=== PATIENT | male | born 1985 | race Caucasian/White ===

== ENCOUNTER 2017-10-04 09:49 | Emergency (ER) | payer OTHER ==
[2017-10-04] MEDS ORDERED: HYDROCODONE/APAP 7.5/325 MG TAB ONE (10:11)
[2017-10-04] MEDS ORDERED: KETOROLAC 30 MG/ML INJ ONE (10:11)
[2017-10-04] MEDS ORDERED: DIAZEPAM 5 MG TABLET ONE ×2 (10:12→11:04)
--- NOTE | 2017-10-04 11:40 | ER ---
Nurse's Notes [facility] Name: Jamie Zuniga Age: 32 yrs Sex: Male : 1985 Arrival Date: 10/04/2017 Time: 09:52 Bed 16 Private MD: Devang Kwok Diagnosis: Low back pain;Fall on same level, unspecified Presentation: 10/04 10:00 Presenting complaint: Patient states: chronic low back pain since 2012, history of ss bulging disc. Pt [place] the [place] his dog pulled the leash, causing patient to fall over onto his back. Pt c/o increased R low back pain since incident occurred. Transition of care: patient was not received from another setting of care. Onset of symptoms was October 03, 2012. Risk Assessment: Do you want to hurt yourself or someone else? Patient reports no desire to harm self or others. Initial Sepsis Screen: Does the patient meet any 2 criteria? No. Patient's initial sepsis screen is negative. Does the patient have a suspected source of infection? No. Patient's initial sepsis screen is negative. Care prior to arrival: None. 10:00 Method Of Arrival: Ambulatory ss 10:00 Acuity: GAETANO 4 ss Historical: - Allergies: 10:01 No Known Allergies; ss - Home Meds: 10:01 None [Active]; ss - PMHx: 10:01 chronic back pain; sciatica; ss - PSHx: 10:01 None; ss - Immunization history:: Adult Immunizations up to date. - Social history:: Smoking status: Patient/guardian denies using tobacco. - Ebola Screening: : Patient denies exposure to infectious person Patient denies travel to an Ebola-affected area in the 21 days before illness onset. Screenin:56 Abuse screen: Denies threats or abuse. Nutritional screening: No deficits noted. rb1 Tuberculosis screening: No symptoms or risk factors identified. Fall Risk None identified. Assessment: 09:56 General: Appears uncomfortable, Behavior is calm, cooperative. Pain: Complains of pain rb1 in left low back and right low back Pain currently is 10 out of 10 on a pain scale. Pain began 1 day ago. Neuro: Level of Consciousness is awake, alert, obeys commands, Oriented to person, place, time, situation. Cardiovascular: Capillary refill < 3 seconds is brisk in bilateral fingers. Respiratory: Airway is patent Respiratory effort is even, unlabored, Respiratory pattern is regular, symmetrical. GI: No signs and/or symptoms were reported involving the gastrointestinal system. : No signs and/or symptoms were reported regarding the genitourinary system. Derm: Skin is pink, warm \T\ dry. Musculoskeletal: Range of motion: intact in all extremities. 10:30 Reassessment: Pt. went to X-ray. rb1 11:00 Reassessment: Patient appears in no apparent distress at this time. Patient and/or rb1 family updated on plan of care and expected duration. Pain level reassessed. Patient is alert, oriented x 3, equal unlabored respirations, skin warm/dry/pink. 11:49 Reassessment: Discharge pending due to the pt. being pale and feeling nauseous from the rb1 pain medication. Provider ordered Zofran 4 mg PO once. 12:22 Reassessment: Patient appears in no apparent distress at this time. Patient and/or rb1 family updated on plan of care and expected duration. Pain level reassessed. Patient is alert, oriented x 3, equal unlabored respirations, skin warm/dry/pink. Patient states feeling better. Patient states symptoms have improved. Vital Signs: 10:01 BP 132 / 83; Pulse 103; Resp 16; Temp 98.0(O); Pulse Ox 96% on R/A; Weight 122.47 kg; ss Height 6 ft. 4 in. (193.04 cm); Pain 10/10; 11:00 BP 117 / 81; Pulse 80; Resp 18; Pulse Ox 96% on R/A; Pain 7/10; rb1 11:51 BP 107 / 65; Pulse 78; Resp 18; Pulse Ox 96% on R/A; rb1 10:01 Body Mass Index 32.87 (122.47 kg, 193.04 cm) ED Course: 09:52 Patient arrived in ED. sb2 09:53 Devang Kwok MD is Private Physician. sb2 09:56 Patient has correct armband on for positive identification. Bed in low position. Call rb1 light in reach. Side rails up X 1. Pulse ox on. NIBP on. 09:57 Ann-Marie Enamorado FNP-C is [facility]. snw 09:57 Kevin Guzman MD is Attending Physician. snw 10:01 Triage completed. ss 10:01 Arm band placed on right wrist. ss 10:07 Tahira Flor, RN is Primary Nurse. rb1 10:47 X-ray completed. Patient tolerated procedure well. kc2 10:49 Lumbar Spine (3 Views) XRAY In Process Unspecified. EDMS 11:39 Devang Kwok MD is Referral Physician. snw 12:22 No provider procedures requiring assistance completed. Patient did not have IV access rb1 during this emergency room visit. Administered Medications: 10:16 Drug: TORadol 60 mg Route: IM; Site: right gluteus; rb1 11:00 Follow up: Response: No adverse reaction; Pain is decreased rb1 10:16 Drug: [place] (7.5 mg-325 mg) 1 tabs Route: PO; rb1 11:00 Follow up: Response: No adverse reaction; Pain is decreased rb1 11:04 Drug: Valium 5 mg {Note: pt. didn't want to take the medication with the [place] earlier. rb1 Provider was notified at that time..} Route: PO; 11:30 Follow up: Response: No adverse reaction rb1 11:50 Drug: Zofran 4 mg Route: PO; rb1 12:22 Follow up: Response: No adverse reaction; Nausea is decreased rb1 Outcome: 11:40 Discharge ordered by MD. snw 12:22 Discharged to home ambulatory. rb1 12:22 Condition: stable 12:22 Discharge instructions given to patient, Instructed on discharge instructions, follow up and referral plans. medication usage, Demonstrated understanding of instructions, follow-up care, medications, Prescriptions given X 2. 12:23 Patient left the ED. rb1 Signatures: Dispatcher [employer] EDGA Ann-Marie Enamorado, HIGH RISK OB-C HIGH RISK OB-Csnw Gela Aldridge RN RN Tahira Flor, RN RN rb1 Flower Jackson kc2 Keya Robledo sb2
--- NOTE | 2017-10-04 11:40 | EDPHYS ---
Physician Documentation [facility] Name: Jamie Zuniga Age: 32 yrs Sex: Male : 1985 Arrival Date: 10/04/2017 Time: 09:52 Bed 16 Private MD: Devang Kwok ED Physician Kevin Guzman HPI: 10/04 12:22 This 32 yrs old Male presents to ER via Ambulatory with complaints of Back snw Pain. 12:22 The patient presents with pain that is acute, and an injury. The symptoms are located snw in the low back. Onset: The symptoms/episode began/occurred gradually, 2 month(s) ago, and became worse yesterday, post dog pulling pt off his feet onto his back by the leash. The pain does not radiate. Associated signs and symptoms: Pertinent positives: none. The problem was sustained during a fall, running his dog at the beach and fell. Modifying factors: The patient symptoms are alleviated by nothing, the patient symptoms are aggravated by movement. It is unknown whether or not the patient has had similar symptoms in the past. The patient has not recently seen a physician, the patient's primary care provider is Dr. Dr. Kwok. Historical: - Allergies: 10:01 No Known Allergies; ss - Home Meds: 10: None [Active]; ss - PMHx: 10:01 chronic back pain; sciatica; ss - PSHx: 10:01 None; ss - Immunization history:: Adult Immunizations up to date. - Social history:: Smoking status: Patient/guardian denies using tobacco. - Ebola Screening: : Patient denies exposure to infectious person Patient denies travel to an Ebola-affected area in the 21 days before illness onset. ROS: 12:21 Constitutional: Negative for fever, chills, and weight loss, Eyes: Negative for injury, snw pain, redness, and discharge, ENT: Negative for injury, pain, and discharge, Neck: Negative for injury, pain, and swelling, Cardiovascular: Negative for chest pain, palpitations, and edema, Respiratory: Negative for shortness of breath, cough, wheezing, and pleuritic chest pain, Abdomen/GI: Negative for abdominal pain, nausea, vomiting, diarrhea, and constipation, : Negative for injury, bleeding, discharge, and swelling, MS/Extremity: Negative for injury and deformity, Skin: Negative for injury, rash, and discoloration, Neuro: Negative for headache, weakness, numbness, tingling, and seizure. 12:21 Back: Positive for injury or acute deformity, decreased range of motion, pain at rest, pain with movement. Exam: 12:20 Constitutional: This is a well developed, well nourished patient who is awake, alert, snw and in no acute distress. Head/Face: Normocephalic, atraumatic. Eyes: Pupils equal round and reactive to light, extra-ocular motions intact. Lids and lashes normal. Conjunctiva and sclera are non-icteric and not injected. Cornea within normal limits. Periorbital areas with no swelling, redness, or edema. ENT: Nares patent. No nasal discharge, no septal abnormalities noted. Tympanic membranes are normal and external auditory canals are clear. Oropharynx with no redness, swelling, or masses, exudates, or evidence of obstruction, uvula midline. Mucous membranes moist. Neck: Trachea midline, no thyromegaly or masses palpated, and no cervical lymphadenopathy. Supple, full range of motion without nuchal rigidity, or vertebral point tenderness. No Meningismus. Chest/axilla: Normal chest wall appearance and motion. Nontender with no deformity. No lesions are appreciated. Cardiovascular: Regular rate and rhythm with a normal S1 and S2. No gallops, murmurs, or rubs. Normal PMI, no JVD. No pulse deficits. Respiratory: Lungs have equal breath sounds bilaterally, clear to auscultation and percussion. No rales, rhonchi or wheezes noted. No increased work of breathing, no retractions or nasal flaring. Abdomen/GI: Soft, non-tender, with normal bowel sounds. No distension or tympany. No guarding or rebound. No evidence of tenderness throughout. Skin: Warm, dry with normal turgor. Normal color with no rashes, no lesions, and no evidence of cellulitis. MS/ Extremity: Pulses equal, no cyanosis. Neurovascular intact. Full, normal range of motion. Neuro: Awake and alert, GCS 15, oriented to person, place, time, and situation. Cranial nerves II-XII grossly intact. Motor strength 5/5 in all extremities. Sensory grossly intact. Cerebellar exam normal. Normal gait. 12:20 Back: pain, that is moderate, ROM is painful, decreased, muscle spasm, is appreciated in the low back area. Vital Signs: 10:01 BP 132 / 83; Pulse 103; Resp 16; Temp 98.0(O); Pulse Ox 96% on R/A; Weight 122.47 kg; ss Height 6 ft. 4 in. (193.04 cm); Pain 10/10; 11:00 BP 117 / 81; Pulse 80; Resp 18; Pulse Ox 96% on R/A; Pain 7/10; rb1 11:51 BP 107 / 65; Pulse 78; Resp 18; Pulse Ox 96% on R/A; rb1 10:01 Body Mass Index 32.87 (122.47 kg, 193.04 cm) ss MDM: 10:07 Patient medically screened. snw 12:21 Data reviewed: vital signs, nurses notes. Data interpreted: Pulse oximetry: on room air snw is 96 %. Interpretation: normal. Counseling: I had a detailed discussion with the patient and/or guardian regarding: the historical points, exam findings, and any diagnostic results supporting the discharge/admit diagnosis, radiology results, the need for outpatient follow up, to return to the emergency department if symptoms worsen or persist or if there are any questions or concerns that arise at home. Special discussion: Based on the history and exam findings, there is no indication for further emergent testing or inpatient evaluation. I discussed with the patient/guardian the need to see the back specialist for further evaluation of the symptoms. I discussed with the patient/guardian the need to see the primary care provider for further evaluation of the symptoms. 10/04 10:07 Order name: Lumbar Spine (3 Views) XRAY snw Administered Medications: 10:16 Drug: TORadol 60 mg Route: IM; Site: right gluteus; rb1 11:00 Follow up: Response: No adverse reaction; Pain is decreased rb1 10:16 Drug: [place] (7.5 mg-325 mg) 1 tabs Route: PO; rb1 11:00 Follow up: Response: No adverse reaction; Pain is decreased rb1 11:04 Drug: Valium 5 mg {Note: pt. didn't want to take the medication with the [place] earlier. rb1 Provider was notified at that time..} Route: PO; 11:30 Follow up: Response: No adverse reaction rb1 11:50 Drug: Zofran 4 mg Route: PO; rb1 12:22 Follow up: Response: No adverse reaction; Nausea is decreased rb1 Disposition: 10/05 07:17 Co-signature as Attending Physician, Kevin Guzman MD. Disposition: 10/04/17 11:40 Discharged to Home. Impression: Low back pain, Fall on same level, unspecified. - Condition is Stable. - Discharge Instructions: Back Pain, Adult, Hypertension, Musculoskeletal Pain, Back Injury Prevention, [id number], Cryotherapy, Heat Therapy. - Prescriptions for Diclofenac Sodium 75 mg Oral Tablet Sustained Release - take 1 tablet by ORAL route 2 times per day; 30 tablet. orphenadrine citrate 100 mg Oral Tablet Sustained Release - take 1 tablet by ORAL route 2 times per day As needed; 20 tablet. - Work release form, Medication Reconciliation Form, Thank You Letter, Antibiotic Education, Prescription Opioid Use form. - Follow up: Devang Kwok MD; When: 2 - 3 days; Reason: Recheck today's complaints, Continuance of care, Re-evaluation by your physician. Follow up: Emergency Department; When: As needed; Reason: Worsening of condition. Signatures: Dispatcher [employer] EDMS Ann-Marie Enamorado, MISSILE PAD MECHANIC-C MISSILE PAD MECHANIC-Csnw Gela Aldridge RN RN Tahira Flor RN RN rb1 Kevin Guzman MD MD Corrections: (The following items were deleted from the chart) 10/04 12:23 11:40 10/04/2017 11:40 Discharged to Home. Impression: Low back pain; Fall on same rb1 level, unspecified. Condition is Stable. Forms are Medication Reconciliation Form, Thank You Letter, Antibiotic Education, Prescription Opioid Use. Follow up: Devang Kwok; When: 2 - 3 days; Reason: Recheck today's complaints, Continuance of care, Re-evaluation by your physician. Follow up: Emergency Department; When: As needed; Reason: Worsening of condition. snw
[2017-10-04] MEDS ORDERED: ONDANSETRON 4 MG (ODT) TAB ONE (11:50)
--- NOTE | 2017-10-04 12:41 | RAD REPORT ---
EXAM DESCRIPTION: RAD - Lumbar Spine 3 Views - 10/04/2017 10:49 am CLINICAL HISTORY: Back pain, radiculopathy COMPARISON: None. FINDINGS: A three-view lumbar spine examination was performed. Lumbar bodies are normal in height an d normal in AP alignment. Minimal left convex curvature is seen. No fracture or acute bony process se en. L3-4 and L4-5 disc space narrowing seen with L4-5 endplate spurring. Facet degenerative change pr esent at L4-5. L5 body is partially sacralized. No pars defects identified. IMPRESSION: No fracture or acute lumbar finding. Significant for age at L3-4 and L4-5 degenerative disc disease with L4-5 facet degenerative change.
== END 2017-10-04 12:23 | disposition home or self-care (01) ==
LOC: ER 09:49
DX: M54.5 Low back pain (principal); G89.29 Other chronic pain; F45.42 Pain disorder with related psychological factors
CPT/HCPCS: 72100; 96372; 99284

== ENCOUNTER 2022-05-15 20:22 | Emergency (ER) | payer OTHER ==
--- OUTSIDE RECORDS SUMMARY | 2022-05-15 20:25 | XMS REPORT | Continuity of Care Document ---
:1985 Author Organization [facility] t Address [address] [place] [address] Care Team Providers Name Role Phone MARY KUHN Attending Clinician Unavailable Dante Carlos Attending Clinician Payers Payer Name Policy Type Policy Number Effective Date Expiration Date Jessenia AHUJANA CHOICE POS [id number] 2015 00:00:00 II Problems Condition Condition Condition Status Onset Resolution Last Treating Co mments Source Name Details Category Date Date Treatment Clinician Date Lumbar Lumbar Problem Active 2018-08-30 Nico jarocho radiculopa radiculopa 11:17:46 l thy thy [place] (disorder) (disorder) Active Problem 08/30/2018 [facility] Morbid Morbid Problem Active 2018-08-30 Nico jarocho obesity obesity 11:17:46 l (disorder) (disorder) He rmann Active Problem 08/30/2018 [facility] Allergies, Adverse Reactions, Alerts This patient has no known allergies or adverse reactions. Social History Social Habit Start Date Stop Date Quantity Comments Source Exposure to Not sure [facility] SARS-CoV-2 (event) Tobacco use and 2020-11-21 2020-11-21 Never used [facility] exposure 00:00:00 00:00:00 Alcohol intake 2020-11-21 2020-11-21 [facility] 00:[facility] 00:00:00 of alcohol (finding) Social History 2017-11-19 2017-11-19 [facility] tommy 15:17:09 15:17:09 Sex Assigned At [birth year] [facility] 00:00:00 00:00:00 Smoking Status Start Date Stop Date Source Never smoker [facility] Medications Ordered Filled Start Stop Current Ordering Indication Dosage Frequency Signature Comments Components Source Medication Medication Date Date Medication? Clinician (SIG) Name Name No known No [facility] No known No [facility] Vital Signs Vital Name Observation Time Observation Value Comments Source Body height 2020-11-21 19:06:00 190.5 cm [facility] Body weight 2020-11-21 19:06:00 127.007 [facility] BMI 2020-11-21 19:06:00 35.00 kg/m2 [facility] Procedures This patient has no known procedures. Encounters Start End Encounter Admission Attending Care Care Encounter Source Date/Time Date/Time Type Type Clinicians Facility Department ID 2020-11-21 Outpatient MARY KUHN [facility] [id number] [place] 14:53:15 Health 2020-11-13 Outpatient MARY KUHN [facility] [id number] [place] 13:25:45 Health 2020-11-21 2020-11-21 Office Mary Kuhn [facility] [id number] [place] 13:57:23 14:57:17 Visit [facility] [id number] [facility] [id number] 2018-02-10 2018-02-10 Ambulatory nullFlavo MNA [id number] [facility] 19:00:00 19:00:00 Pre-Reg r Neurology 02 ron Nava 2018-02-10 2018-02-10 Outpatient [facility] [id number] [facility] 14:00:00 14:00:00 02 ron Nava 2018-02-10 2018-02-10 [id number] 14:00:00 14:00:00 Dante Cisse 2017-12-09 2017-12-09 Outpatient [facility] [id number] [facility] 16:00:00 16:00:00 01 ron Nava 2017-11-19 2017-11-19 Outpatient [facility] [id number] [facility] 09:45:00 09:45:00 00 ron Nava Results This patient has no known results.
[2022-05-15] MEDS ORDERED: HYDROCODONE/APAP 10/325 TAB ONE (20:46)
--- NOTE | 2022-05-15 22:07 | RAD REPORT ---
EXAM DESCRIPTION: US - Scrotum Testicles - 05/15/2022 9:45 pm CLINICAL HISTORY: left scrotal pain COMPARISON: No comparisons FINDINGS: The right testicle 5.3 x 2.2 x 4 cm with volume of 20.3 cc. No intratesticular masses or e vidence of testicular torsion. The left testicle 5 x 2.6 x 4.1 cm with volume of 27.3 C. Increased flow present in the left testicle . No intratesticular masses or evidence of trauma. Both epididymides are normal in size and appearance. Prominent echogenic fat that is oval in shape and hypervascular is identified in the left aspect of t he scrotum. IMPRESSION: 1. Asymmetric increased vascularity in the left testicle. The testicle otherwise has a n ormal appearance. It could be hypervascular secondary to trauma in its vicinity. See #2. 2. Echogenic oval and somewhat hypervascular fat contents in the left aspect of the scrotum may also be trauma related given the patient's history of trauma. It does not have the appearance of a hernia. Suggest clinical follow-up to ensure resolution.
--- NOTE | 2022-05-15 22:38 | EDPHYS ---
Physician Documentation [facility] Name: Jamie Zuniga Age: 37 yrs Sex: Male : 1985 Arrival Date: 05/15/2022 Time: 20:23 Bed IW2 Private MD: ED Physician Dima Davidson HPI: 05/15 20:43 This 37 yrs old Male presents to ER via Wheelchair with complaints of Testicular pm1 Swelling, Fever. 20:43 The patient presents with scrotal pain, of the left side. Onset: The symptoms/episode pm1 began/occurred yesterday. Modifying factors: The symptoms are alleviated by holding up his left testicle, the symptoms are aggravated by movement. Associated signs and symptoms: Pertinent positives: fever, 99, Pertinent negatives: abdominal pain, dysuria. Severity of symptoms: in the emergency department the symptoms are actually worse. The patient has not experienced similar symptoms in the past. The patient has not recently seen a physician. Patient was getting out of his truck and pinched his genitals against his leg. Patient reported pain since then has gotten worse and reports some swelling to his left testicle area. Patient also reports low-grade fever 99 degrees. Historical: - Allergies: 20:46 No Known Allergies; tw5 - PMHx: 20:46 chronic back pain; sciatica; tw5 - PSHx: 20:46 None; tw5 - Immunization history:: Flu vaccine is not up to date. - Social history:: Smoking status: Patient denies any tobacco usage or history of. ROS: 20:43 Abdomen/GI: Negative for abdominal pain, nausea, vomiting, diarrhea, and constipation, pm1 MS/Extremity: Negative for injury and deformity, Skin: Negative for injury, rash, and discoloration, Neuro: Negative for headache, weakness, numbness, tingling, and seizure. 20:43 Cardiovascular: Negative for chest pain, palpitations, and edema, Respiratory: Negative for shortness of breath, cough, wheezing, and pleuritic chest pain. 20:43 : Positive for testicular pain of the left testicle, Negative for urinary symptoms. 20:43 All other systems are negative. 20:43 Constitutional: Positive for fever. pm1 Exam: 20:43 Constitutional: This is a well developed, well nourished patient who is awake, alert, pm1 and in no acute distress. Head/Face: Normocephalic, atraumatic. 20:43 Skin: Warm, dry with normal turgor. Normal color with no rashes, no lesions, and no evidence of cellulitis. MS/ Extremity: Pulses equal, no cyanosis. Neurovascular intact. Full, normal range of motion. 20:43 Cardiovascular: Exam negative for acute changes, Rate: normal, Rhythm: regular, Pulses: no pulse deficits are appreciated. 20:43 Respiratory: Exam negative for acute changes, respiratory distress, shortness of breath. 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 20:43 Neuro: Exam negative for acute changes, Orientation: is normal, Mentation: is normal, Motor: is normal, moves all fours, Gait: is steady, at a normal pace, without difficulty. Vital Signs: 20:36 BP 126 / 95; Pulse 109; Resp 18; Temp 99.9; Pulse Ox 98% ; Weight 113.4 kg; Height 6 tw5 ft. 3 in. (190.50 cm); Pain 8/10; 20:36 Body Mass Index 31.25 (113.40 kg, 190.50 cm) tw5 MDM: 20:43 Patient medically screened. pm1 20:43 Differential diagnosis: testicular torsion, epididymitis, contusion. pm1 22:36 Data reviewed: vital signs. pm1 22:36 Counseling: I had a detailed discussion with the patient and/or guardian regarding: the pm1 historical points, exam findings, and any diagnostic results supporting the discharge/admit diagnosis, radiology results, the need for outpatient follow up, a family practitioner, a urologist, to return to the emergency department if symptoms worsen or persist or if there are any questions or concerns that arise at home. 05/15 20:43 Order name: US Scrotum Testicles; Complete Time: 22:17 pm1 Administered Medications: 20:44 Drug: [place] (HYDROcodone-acetaminophen) 10 mg-325 mg 1 tabs Route: PO; tw5 22:42 Follow up: Response: No adverse reaction; Pain is decreased tw5 Disposition: 05/16 03:09 Co-signature as Attending Physician, Dima Davidson MD. rn 03:10 I reviewed the patient's care provided by the Advanced Practice Provider and agree with rn the diagnosis and treatment plan. Disposition Summary: 05/15/22 22:37 Discharge Ordered Location: Home pm1 Problem: new pm1 Symptoms: have improved pm1 Condition: Stable pm1 Diagnosis - Epididymitis pm1 - Contusion of scrotum and testes pm1 Followup: pm1 - With: Emergency Department - When: As needed - Reason: Worsening of condition Followup: pm1 - With: Private Physician - When: 2 - 3 days - Reason: Recheck today's complaints, Continuance of care, Re-evaluation by your physician Discharge Instructions: - Discharge Summary Sheet pm1 - Contusion pm1 - Epididymitis pm1 - Testicular Self-Exam pm1 Forms: - Medication Reconciliation Form pm1 - Thank You Letter pm1 - Antibiotic Education pm1 - Prescription Opioid Use pm1 Prescriptions: - Bactrim DS 800-160 mg Oral Tablet - take 1 tablet by ORAL route every 12 hours for 10 days; 20 tablet; Refills: 0, pm1 Product Selection Permitted - Tylenol-Codeine #3 300 mg-30 mg Oral - take 2 tablet by ORAL route every 6 hours As needed; 20 tablet; Refills: 0, pm1 Product Selection Permitted Signatures: Dispatcher [employer] EDMS Dima Davidson MD MD rn Marinas, Patrick, NP FOREST LANDSCAPE ECOLOGY PROFESSOR pm1 Mirella Diana tw5 Anitha Nathan RN RN [id number] Corrections: (The following items were deleted from the chart) 05/15 22:36 22:36 Counseling: I had a detailed discussion with the patient and/or guardian pm1 regarding: the historical points, exam findings, and any diagnostic results supporting the discharge/admit diagnosis, radiology results, the need for outpatient follow up, a family practitioner, to return to the emergency department if symptoms worsen or persist or if there are any questions or concerns that arise at home, pm1 22:42 20:43 Urine Dipstick-Ancillary ordered. pm1 tw5 05/16 02:09 05/15 20:43 Constitutional: Negative for fever, chills, and weight loss, pm1 Cardiovascular: Negative for chest pain, palpitations, and edema, Respiratory: Negative for shortness of breath, cough, wheezing, and pleuritic chest pain, pm1
--- NOTE | 2022-05-15 22:38 | ER ---
Nurse's Notes [facility] Name: Jamie Zuniga Age: 37 yrs Sex: Male : 1985 Arrival Date: 05/15/2022 Time: 20:23 Bed IW2 Private MD: Diagnosis: Epididymitis;Contusion of scrotum and testes Presentation: 05/15 20:36 Chief complaint: Patient states: "I hopped out of my truck yesterday and I felt a pinch tw5 in my left testicle. I tried icing it today but it wasn't getting better. Then I started feeling like yuck two hours ago.". 20:45 Coronavirus screen: Vaccine status: Patient reports being unvaccinated. Ebola Screen: tw5 Patient negative for fever greater than or equal to 101.5 degrees Fahrenheit, and additional compatible Ebola Virus Disease symptoms Patient denies exposure to infectious person. Patient denies travel to an Ebola-affected area in the 21 days before illness onset. Initial Sepsis Screen: Does the patient meet any 2 criteria? HR > 90 bpm. Does the patient have a suspected source of infection? No. Patient's initial sepsis screen is negative. Risk Assessment: Do you want to hurt yourself or someone else? Patient reports no desire to harm self or others. Onset of symptoms was May 14, 2022 at 11:00. 20:45 Method Of Arrival: Wheelchair tw5 20:45 Acuity: GAETANO 2 tw5 Triage Assessment: 20:46 General: Appears uncomfortable, Behavior is calm, cooperative, appropriate for age. tw5 Pain: Pain currently is 8 out of 10 on a pain scale. Historical: - Allergies: 20:46 No Known Allergies; tw5 - PMHx: 20:46 chronic back pain; sciatica; tw5 - PSHx: 20:46 None; tw5 - Immunization history:: Flu vaccine is not up to date. - Social history:: Smoking status: Patient denies any tobacco usage or history of. Screenin:42 [facility] ED Fall Risk Assessment (Adult) History of falling in the last 3 months, tw5 including since admission. Abuse screen: Denies threats or abuse. Denies injuries from another. Nutritional screening: No deficits noted. Tuberculosis screening: No symptoms or risk factors identified. Assessment: 22:42 General: Appears in no apparent distress. Behavior is calm, cooperative, appropriate tw5 for age. Vital Signs: 20:36 BP 126 / 95; Pulse 109; Resp 18; Temp 99.9; Pulse Ox 98% ; Weight 113.4 kg; Height 6 tw5 ft. 3 in. (190.50 cm); Pain 8/10; 20:36 Body Mass Index 31.25 (113.40 kg, 190.50 cm) tw5 ED Course: 20:23 Patient arrived in ED. as 20:30 Wing Cha NP is PHCP. pm1 20:30 Dima Davidson MD is Attending Physician. pm1 20:45 Triage completed. tw5 20:46 Arm band placed on. tw5 21:46 US Scrotum Testicles In Process Unspecified. EDMS 22:42 Patient has correct armband on for positive identification. tw5 22:42 No provider procedures requiring assistance completed. tw5 22:43 Patient did not have IV access during this emergency room visit. tw5 Administered Medications: 20:44 Drug: [place] (HYDROcodone-acetaminophen) 10 mg-325 mg 1 tabs Route: PO; tw5 22:42 Follow up: Response: No adverse reaction; Pain is decreased tw5 Medication: 22:42 VIS not applicable for this client. tw5 Outcome: 22:37 Discharge ordered by . pm1 22:43 Discharged to home ambulatory, with family. tw5 22:43 Condition: stable 22:43 Discharge instructions given to patient, Instructed on discharge instructions, follow up and referral plans. medication usage, Demonstrated understanding of instructions, follow-up care, medications, Prescriptions given X 2. 22:51 Patient left the ED. tw5 Signatures: Dispatcher [employer] Aixa Gonzalez Patrick, NP SALES SERVICE PROFESSIONAL pm1 Mirella Diana tw5
[2022-05-15 22:56] VITALS: BP 126/95; TEMP 99.9; O2SAT 98
== END 2022-05-15 22:51 | disposition home or self-care (01) ==
LOC: ER 20:22
DX: S30.22XA Contusion of scrotum and testes, initial encounter (principal); N45.1 Epididymitis
CPT/HCPCS: 76870; 99283